=== PATIENT | male | born 1950 | race Caucasian/White ===

== ENCOUNTER → 2020-09-26 | Outpatient (CLI) | payer MEDICARE | LOC: M PLALAB 11:30 | PROVIDERS: ATTEND Nurse Practitioner Women's Health | DX: C61 Malignant neoplasm of prostate (principal) ==

== ENCOUNTER → 2021-01-16 | Outpatient (REF) | payer MEDICARE | LOC: M PLALAB 17:06 → M SMT 17:06 | PROVIDERS: ATTEND Nurse Practitioner Women's Health | DX: C61 Malignant neoplasm of prostate (principal) ==

== ENCOUNTER 2021-03-20 16:29 | Inpatient (IN) | payer MEDICARE ==
[~2021-03-20] VITALS: Ht 180.3 cm; Wt 86.0 kg
[2021-03-20] MEDS ORDERED: METOPROLOL TART 50 MG TAB PO ONE (19:00)
--- NOTE | 2021-03-20 19:00 | REP ---
INDICATION: CHEST PAIN. COMPARISON: None. TECHNIQUE: Portable FINDINGS: The technique utilized in obtaining the radiograph has magnified the cardiac silhouette and accentuated the interstitial markings. Mild cardiomegaly is present accentuated by technique. The interstitial markings are diffusely increased. There are no patchy opacities or pleural effusions. The osseous structures are within normal limits. IMPRESSION: Mild cardiomegaly is suspected with interstitial fibrotic change. Mild interstitial edema cannot be ruled out on this portable exam. There are no priors for comparison. <Electronically signed by Kvng Marshall > 03/20/21 [id number]
[2021-03-20] MEDS: METOPROLOL 5 MG/5 ML VIAL IV SCH ×3 (19:19→19:55)
[2021-03-20 19:32] LABS: BASO # 0.1 10^3/uL (0.0-0.2); BASO % 0.5 % (0.0-1.0); EOS # 0.1 10^3/uL (0.0-0.5); EOS % 1.1 % (0.0-3.0); HEMATOCRIT 45.8 % (42.0-52.0); HEMOGLOBIN 15.5 g/dl (13.5-17.5); LYMPH # 1.5 10^3/uL (1.5-5.0); LYMPH % 14.7 % (24.0-44.0); MEAN CORPUSCULAR HEMOGLOBIN 31.1 pg (27.0-33.0); MEAN CORPUSCULAR HGB CONC 33.8 g/dl (32.0-36.5); MEAN CORPUSCULAR VOLUME 91.8 fl (80.0-96.0); MONO # 0.8 10^3/uL (0.0-0.8); MONO % 7.9 % (2.0-8.0); NEUTROPHILS # 7.4 10^3/uL (1.5-8.5); NEUTROPHILS % 75.2 % (36.0-66.0); PLATELET COUNT, AUTOMATED 199 10^3/uL (150-450); RED BLOOD COUNT 4.99 10^6/uL (4.30-6.10); WHITE BLOOD COUNT 9.9 10^3/uL (4.0-10.0)
[2021-03-20 19:41] LABS: INR 1.07; PROTHROMBIN TIME 14.3 SECONDS (12.7-14.5)
[2021-03-20 19:42] LABS: PARTIAL THROMBOPLASTIN TIME 30.6 SECONDS (25.9-37.0)
[2021-03-20 19:55] LABS: ALBUMIN 3.8 GM/DL (3.2-5.2); ALT/SGPT 42 U/L (12-78); BILIRUBIN,DIRECT 0.1 MG/DL (0.0-0.2); BILIRUBIN,TOTAL 0.4 MG/DL (0.2-1.0); BLOOD UREA NITROGEN 18 MG/DL (7-18); CALCIUM LEVEL 9.3 MG/DL (8.8-10.2); CARBON DIOXIDE LEVEL 25 MEQ/L (21-32); CHLORIDE LEVEL 107 MEQ/L (98-107); CREATININE FOR GFR 1.06 MG/DL (0.70-1.30); GLOMERULAR FILTRATION RATE > 60.0 (>42); GLUCOSE, FASTING 100 MG/DL (70-100); LIPASE 150 U/L (73-393); MAGNESIUM LEVEL 2.2 MG/DL (1.8-2.4); NT-PRO BNP 2342 PG/ML (<125); POTASSIUM SERUM 4.3 MEQ/L (3.5-5.1); SODIUM LEVEL 139 MEQ/L (136-145); TOTAL PROTEIN 7.7 GM/DL (6.4-8.2)
[2021-03-20] MEDS ORDERED: NS 500 ML IV ONE (20:25)
[2021-03-20] MEDS ORDERED: amLODIPine 5 MG TAB PO ONE (21:15)
[2021-03-20] MEDS ORDERED: ENALAPRIL MALEATE 10 MG TAB PO ONE (21:15)
--- NOTE | 2021-03-20 23:32 | HPEPDOC ---
[facility] Medical History & Physical Date of Admission Mar 20, 2021 Date of Service: Mar 21, 2021 Primary Care Physician: Mable Moeller Attending Physician: BLAKE SANCHEZ MD History and Physical TIME OF SERVICE: 1230am CHIEF COMPLAINT: Dizziness HISTORY OF PRESENT ILLNESS: Mr. Joyner, a 70-year-old gentleman, has been feeling dizzy and having leg weakness for couple of days. He decided to go to Dr. Rosas's office and was found to have rapid A. fib and was sent to the ER. Despite receiving 3 doses of 5 mg of IV metoprolol, and 50 mg of p.o. metoprolol he is still in RVR with a rate in the 160s; Narciso Bowman discussed the case with Dr. Pope who recommended inpatient admission. The patient denies having chest pain, shortness of breath, confusion, or lower extremity swelling. He denies drinking alcoholic beverages recently, or drinking more caffeine than usual. He added that he has right lower arm pain which he attributes to tight placement of the blood pressure cuff along with numbness and paresthesia affecting the first 3 fingers of the right hand. REVIEW OF SYSTEMS: 10-point review of systems negative except as listed in HPI PAST MEDICAL/ SURGICAL HISTORY: Longstanding persistent atrial fibrillation, chronic CAD with a history of LA and stent placement in 1998, prostate cancer status post TRUS biopsy, essential hypertension, dyslipidemia, depression, arthritis, & diverticulosis SOCIAL HISTORY: He does not smoke FAMILY HISTORY: His father had prostate cancer, while his mother had an LA and diabetes ALLERGIES: Please see below. HOME MEDICATIONS: Please see below. PHYSICAL EXAMINATION: Vital Signs Date Time Temp Pulse Resp B/P (MAP) Pulse Ox O2 Delivery O2 Flow Rate FiO2 03/20/21 16:30 98.6 72 18 136/84 (101) 97 Room Air GENERAL APPEARANCE: Slim built, well-developed, not in apparent distress HEENT: Extraocular movements intact, mucous membranes moist and pink CARDIOVASCULAR: Heart rate irregularly irregular LUNGS: Clear to auscultation bilaterally on room air ABDOMEN: Flat MUSCULOSKELETAL: Range of motion intact x4 extremities. His left lower arm is more swollen compared to the right. He has what appear to be tophi on the dorsal surface of the MCPs INTEGUMENT: He is not flushed pale or diaphoretic NEUROLOGICAL: Cranial nerves II to XII are grossly intact speech is not dysarthric PSYCHIATRIC: He is alert and oriented to person place and time able to understand and follow all commands LABORATORY DATA: IMAGING: Chest x-ray IMPRESSION: Mild cardiomegaly is suspected with interstitial fibrotic change. Mild interstitial edema cannot be ruled out on this portable exam. There are no priors for comparison. MICROBIOLOGY: The respiratory panel is negative ASSESSMENT: Mr. Joyner is a 70-year-old with a history of atrial fibrillation, CAD, prostate cancer, HTN, dyslipidemia, depression & arthritis who was admitted for management of rapid A. fib. PLAN: 1 A fib w RVR Most risk factors for chronic a fib include HTN & CAD. I suspect that the etiology of this acute episode is idiopathic. Nevertheless we will r/o ischemia and CHF. His K, TSN and mag are wnl. His CHADS VASC Score to determine risk of stroke is 3. He is already on a DOAC [place] Score to determine if D-dimer needs to be ordered to screen for PE as precipitating cause of rapid Afib is out PE = 1 point = low risk Plan: he was initially admitted to ICU for IV Cardizem but his HR decreased to the 70s after 1 dose of IV Cardizem, therefore he was downgraded to PCU / telemetry / f/u serial Trops to r/o LA / bc his BNP is elevated will order Echo to r/o CHF / c/w Apixaban / c/w Atenolol 25mb BID /the day time team may consider touching base with Dr. Rosas to discuss whether the patients day time meds need to be adjusted and or if the patient needs a rescue plan such as taking an extra dose of atenolol if he notices that his HR is fast 2 Uncontrolled HTN Plan: c/w atenolol / IV Cardizem 3 LUE swelling Plan: f/u US to r/o DVT 4 hx of OA w tophi ? Plan: f/u uric acid 5 Right hand paresthesia along the radial nerve distribution Likely carpal tunnel syndrome Plan: f/u w PCP 6 Chronic CAD Plan: BB w statin 7 Prostate cancer Plan: f/u w Urology as scheduled / finasteride 8 Dyslipidemia Plan: statin 9 Depression Plan sertraline DVT px n/a on DOAC Dispo: home after at least 2 midnights stay His HOSPITAL Score is 1 point= which puts him in the low risk group. He has a 5.8% risk of potentially avoidable readmission within the next 30 days. Home Medications Scheduled Apixaban (Eliquis) 5 Mg Tablet, 5 MG PO BID Atenolol (Atenolol) 25 Mg Tablet, 25 MG PO BID Atorvastatin Calcium (Atorvastatin Calcium) 40 Mg Tablet, 40 MG PO QHS Enalapril Maleate (Enalapril Maleate) 10 Mg Tablet, 10 MG PO BID Ergocalciferol (Vitamin D2) (Vitamin D2) 50,000 Units Cap, 50,000 UNITS PO QWEEK FRIDAY Famotidine (Famotidine) 40 Mg Tablet, 40 MG PO QHS Finasteride (Finasteride) 5 Mg Tablet, 5 MG PO DAILY Sertraline Hcl (Zoloft) 100 Mg Tablet, 100 MG PO DAILY Allergies Coded Allergies: No Known Allergies (Unverified , 03/20/21) A-FIB/CHADSVASC A-FIB History Current/History of A-Fib/PAF?: No Current PO Anticoag Therapy: No BLAKE SANCHEZ MD Mar 20, 2021 23:32
[2021-03-20] MEDS ORDERED: ACETAMINOPHEN TAB 650MG DOSE (2X325MG) PO PRN (23:45)
[2021-03-21 00:13] LABS: RSV AMPLIFICATION NEGATIVE (NEGATIVE)
[2021-03-21 00:39] LABS: BASO # 0.1 10^3/uL (0.0-0.2); BASO % 0.5 % (0.0-1.0); EOS # 0.1 10^3/uL (0.0-0.5); EOS % 1.3 % (0.0-3.0); HEMATOCRIT 44.4 % (42.0-52.0); HEMOGLOBIN 15.2 g/dl (13.5-17.5); LYMPH # 1.7 10^3/uL (1.5-5.0); LYMPH % 16.1 % (24.0-44.0); MEAN CORPUSCULAR HEMOGLOBIN 31.5 pg (27.0-33.0); MEAN CORPUSCULAR HGB CONC 34.2 g/dl (32.0-36.5); MEAN CORPUSCULAR VOLUME 91.9 fl (80.0-96.0); MONO # 0.9 10^3/uL (0.0-0.8); MONO % 8.1 % (2.0-8.0); NEUTROPHILS # 7.8 10^3/uL (1.5-8.5); NEUTROPHILS % 73.3 % (36.0-66.0); PLATELET COUNT, AUTOMATED 200 10^3/uL (150-450); RED BLOOD COUNT 4.83 10^6/uL (4.30-6.10); WHITE BLOOD COUNT 10.6 10^3/uL (4.0-10.0)
[2021-03-21 01:02] LABS: BLOOD UREA NITROGEN 19 MG/DL (7-18); CALCIUM LEVEL 8.6 MG/DL (8.8-10.2); CARBON DIOXIDE LEVEL 26 MEQ/L (21-32); CHLORIDE LEVEL 107 MEQ/L (98-107); CREATININE FOR GFR 1.06 MG/DL (0.70-1.30); GLOMERULAR FILTRATION RATE > 60.0 (>42); GLUCOSE, FASTING 118 MG/DL (70-100); SODIUM LEVEL 138 MEQ/L (136-145); TROPONIN I < 0.02 NG/ML (< 0.10)
[2021-03-21] MEDS ORDERED: ZOLO100T PO (01:03)
[2021-03-21] MEDS ORDERED: FINA5TAB2 PO (01:03)
[2021-03-21] MEDS ORDERED: ENAL-36 PO (01:03)
[2021-03-21] MEDS ORDERED: ATEN25TA PO (01:03)
[2021-03-21] MEDS ORDERED: ATOR40TA75 PO (01:03)
[2021-03-21] MEDS ORDERED: FAMO40TA3 PO (01:03)
[2021-03-21] MEDS ORDERED: ERGO500029 PO (01:03)
[2021-03-21] MEDS ORDERED: ELIQ5TAB PO (01:03)
[2021-03-21] MEDS ORDERED: HOME MED LIST COMPLETE! XX SCH (01:05)
[2021-03-21 03:00] VITALS: BP 139/75
[2021-03-21] MEDS: APIXABAN 5 MG TAB (ELIQUIS) PO SCH ×3 (03:20→20:14)
[2021-03-21] MEDS: ATORVASTATIN 20 MG TAB PO SCH ×2 (03:22→20:13)
[2021-03-21 05:24] LABS: HEMATOCRIT 44.7 % (42.0-52.0); MEAN CORPUSCULAR HEMOGLOBIN 30.8 pg (27.0-33.0); MEAN CORPUSCULAR HGB CONC 33.6 g/dl (32.0-36.5); MEAN CORPUSCULAR VOLUME 91.8 fl (80.0-96.0); PLATELET COUNT, AUTOMATED 179 10^3/uL (150-450); RED BLOOD COUNT 4.87 10^6/uL (4.30-6.10); WHITE BLOOD COUNT 9.9 10^3/uL (4.0-10.0)
[2021-03-21 05:48] LABS: BLOOD UREA NITROGEN 19 MG/DL (7-18); CALCIUM LEVEL 8.2 MG/DL (8.8-10.2); CARBON DIOXIDE LEVEL 27 MEQ/L (21-32); CHLORIDE LEVEL 107 MEQ/L (98-107); CREATININE FOR GFR 0.99 MG/DL (0.70-1.30); GLOMERULAR FILTRATION RATE > 60.0 (>42); GLUCOSE, FASTING 97 MG/DL (70-100); POTASSIUM SERUM 3.7 MEQ/L (3.5-5.1); SODIUM LEVEL 140 MEQ/L (136-145); TROPONIN I < 0.02 NG/ML (< 0.10); URIC ACID 4.6 MG/DL (3.5-7.2)
--- NOTE | 2021-03-21 07:15 | ECGEPIP ---
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
[2021-03-21 07:42] VITALS: BP 122/77
[2021-03-21] MEDS: SERTRALINE 100 MG TAB PO SCH (07:43)
[2021-03-21] MEDS: FINASTERIDE 5 MG TAB PO SCH (07:44)
[2021-03-21] MEDS: ENALAPRIL MALEATE 10 MG TAB PO SCH ×2 (07:44→20:12)
[2021-03-21] MEDS: atenoloL 25 MG TAB PO SCH ×2 (07:44→20:14)
--- NOTE | 2021-03-21 11:36 | IPNPDOC ---
Text Note Date of Service The patient was seen on 03/21/21. NOTE Subjective Pt was seen and examined today and was asymptomatic when sitting, but admitted to experiencing dizziness, weakness in his legs, and sweating when he walks around the room. The muscular pain he was having in his L arm after multiple BP cuff inflations yesterday has resolved. Also, he had diarrhea x1 this morning. Denies SOB, GAMBLE, palpitations, chest pain, pain on deep inspiration, N/V/C, abdominal pain. Objective Gen: Euvolemic. HR in 120s and Telemetry indicative of Afib w RVR while walking. Rate drops to 90s when sitting, still in Afib. Psych: A+Ox3. HEENT: No JVD, moist oral cavity. RESP: CTA b/l, no rhonchi, crackles, or wheeze. CVS: RRR, no murmur. Distal pulses 2/4 b/l. ABD: Soft, NT, ND, normoactive sounds. Ext: No distal edema. Skin: Normal temp, no rash. Imaging/Tests Chest X-Ray 03/20: Reported as- 1. Mild cardiomegaly is suspected with interstitial fibrotic change. 2. Mild interstitial edema cannot be ruled out on this portable exam. EKG 03/20: Reported as- 1. Atrial flutter with variable AV block 2. Moderate voltage criteria for LVH, may be normal variant ( R in aVL , [place] product ) 3. 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 He presented for management of Afib w RVR noted at cardiology outpatient, and was admitted for rate control and evaluation. Plan 1. Afib w RVR Rate was controlled w Cardizem in ICU yesterday, so we will start that again. We are also giving Eliquis and atenolol. Pt clinically appears euvolemic and there is not high indication of CHF. Troponins have been negative-MD unlikely. TSH and electrolytes WNL, r/o hyperthyroidism or electrolyte induced arrhythmia as cause of Afib. Duplex US on L arm to r/o DVT. We are waiting on results of new ECHO and old ECHO from outpatient cardiology to compare for possible etiologies of Afib exacerbations. 2. HTN We are continuing home dose of Enalapril. 3. CAD We will continue home dose of Atenolol. 4. Dyslipidemia We will continue w home dose of Atorvastatin. 5. Depression We will continue with home dose of Sertraline. 6. Prostate Malignancy We will continue home dose of Finasteride. On watchful waiting per Urology, continue follow up on outpatient basis [place] score unknown 7. DVT Prophylaxis Pt is on Eliquis. Disposition Pt will continue to be monitored for another night as we evaluate and work to control his Afib. If rate control is achieved, we will consider discharge tomorrow. GME ATTESTATION My faculty preceptor for this patient encounter was physically present during the encounter and was fully available. All aspects of the patient interview, examination, medical decision making process, and medical care plan development were reviewed and approved by the faculty preceptor. The faculty preceptor is aware and concurs with the plan as stated in the body of this note and will attest to such by his co-signature. VS,Fishbone, I+O VS, Fishbone, I+O Laboratory Tests 03/20/21 18:28 03/21/21 00:26 03/21/21 05:01 Vital Signs Date Time Temp Pulse Resp B/P (MAP) Pulse Ox O2 Delivery O2 Flow Rate FiO2 03/21/21 07:44 110 122/77 03/21/21 07:42 98.0 20 95 Room Air I&O- Last 24 Hours up to 6 AM 03/21/21 06:00 Intake Total 740 ml Output Total 400 ml Balance 340 ml GENEVIEVE VANEGAS OMS-3 Mar 21, 2021 11:36 MUKESH DIAZ D.O. Mar 21, 2021 17:12
[2021-03-21 12:00] VITALS: BP 134/79
[2021-03-21 16:00] VITALS: BP 121/70
[2021-03-21 20:00] VITALS: BP 138/86
--- NOTE | 2021-03-21 23:11 | ECHO ---
ECHOCARDIOGRAM DATE OF PROCEDURE: 03/21/2021 Age: 70 Gender: Male Height: 180 cm Weight: 83 kg REFERRING PHYSICIAN: Mireya Lopez M.D. INDICATION: Cardiac dysrhythmia MEASUREMENTS: IVS 1.3 cm LV 4.5 cm LVPW 1.2 cm LA 4.6 cm Aorta 3.1 cm IVC 1.5 cm FINDINGS: This study is of acceptable technical quality. Patient is in atrial fibrillation with tachycardic rate averaging around 110 beats per minute. Left ventricle is normal size. Mild left ventricular hypertrophy is noted. Overall estimated normal ejection fraction around 65 to 70%. Right ventricle is also normal size and systolic function. Left atrium is severely enlarged. Right atrium appears at least mildly enlarged. Aortic valve is sclerotic, but it is tricuspid and has normal mobility. There are also mild degenerative abnormalities of mitral valve with mild annular calcifications. Mobility of mitral leaflets is preserved. Tricuspid and pulmonic valves appear grossly normal. No pericardial effusion is noted. Inferior vena cava is normal size and appropriately collapses with inspiration, indicative of likely normal central venous pressure. Aortic root appears normal. Aortic arch and abdominal aorta were not well seen. Doppler interrogation reveals trace aortic insufficiency and no significant aortic stenosis. Mitral valve is functionally competent. There is trace tricuspid insufficiency. Calculated pulmonary artery pressure is mid to high 20's, corresponding to normal values. Evaluation of diastolic function is inconclusive due to underlying atrial fibrillation. CONCLUSIONS: 1. Study is of good technical quality; underlying atrial fibrillation with tachycardic rate averaging around 110 bpm. 2. Normal LV size with mild LVH, preserved LV systolic function. Estimated LVEF 65 to 70%. 3. Normal RV size and systolic function. 4. Biatrial enlargement. 5. Prominent aortic sclerosis without significant stenosis and with mild insufficiency. 6. Competent mitral valve. 7. Normal central venous pressure and normal pulmonary artery pressure. MTDD
[2021-03-22] VITALS (7 sets, daily range): BP systolic 126–152; BP diastolic 70–91
[2021-03-22] MEDS: SERTRALINE 100 MG TAB PO SCH (08:35)
[2021-03-22] MEDS: APIXABAN 5 MG TAB (ELIQUIS) PO SCH ×2 (08:35→21:07)
[2021-03-22] MEDS: FINASTERIDE 5 MG TAB PO SCH (08:36)
[2021-03-22] MEDS: atenoloL 25 MG TAB PO SCH ×2 (08:36→21:07)
[2021-03-22] MEDS: ENALAPRIL MALEATE 10 MG TAB PO SCH ×2 (08:36→21:06)
--- NOTE | 2021-03-22 10:22 | REPVR ---
PROCEDURE INFORMATION: Exam: US Duplex Left Upper Extremity Veins, Limited Exam date and time: 03/21/2021 2:43 AM Age: 70 years old Clinical indication: Pain; Arm, lower; Left; Additional info: Left lower arm pain and swelling R/O dvt TECHNIQUE: Imaging protocol: Real-time Duplex ultrasound of the Left Upper Extremity with 2-D perales scale, color Doppler flow and spectral waveform analysis with image documentation. Limited exam focused on the left upper extremity veins. COMPARISON: No relevant prior studies available. FINDINGS: Left deep veins: Unremarkable. Axillary and brachial veins are patent throughout without thrombus. Normal Doppler waveforms. Normal compressibility and/or augmentation response. Visualized internal jugular and subclavian veins are patent. The contralateral subclavian vein is patent as well. Left superficial veins: Unremarkable. Visualized cephalic and basilic veins are patent without thrombus. Soft tissues: Unremarkable. IMPRESSION: No deep venous thrombus demonstrated in the left upper extremity. Electronically signed by: Дмитрий Bell On 03/22/2021 10:21:44 AM
--- NOTE | 2021-03-22 13:31 | IPNPDOC ---
Text Note Date of Service The patient was seen on 03/22/21. NOTE Subjective Pt was seen at bedside this morning and admits that when he sits up he gets sweaty. He also had diarrhea this morning, but admits that is typical for him in the mornings. He has not felt dizzy, or had palpitations or chest pain. Denied SOB, GAMBLE, abdominal pain, N/V/C. Objective Gen: In no distress, euvolemic. Psych: A+Ox3. HEENT: No JVD, moist oral cavity. RESP: CTA b/l, no rhonchi, crackles, or wheeze. CVS: RRR, no murmur, rub, or gallop. Distal pulses 2/4 b/l. ABD: Soft, NT, ND, normoactive sounds. Skin: Normal temp, no swelling. Neuro: Sensation intact b/l. Imaging/Tests Chest X-Ray 03/20: Reported as- 1. Mild cardiomegaly is suspected with interstitial fibrotic change. 2. Mild interstitial edema cannot be ruled out on this portable exam. EKG 03/20: Reported as- 1. Atrial flutter with variable AV block 2. Moderate voltage criteria for LVH, may be normal variant ( R in aVL , Seth product ) 3. Possible Inferior infarct , age undetermined ECHO 03/21: Reported as- LVEF of 65 to 70%. 1. Underlying atrial fibrillation with tachycardic rate averaging around 110 bpm. 2. Normal LV size with mild LVH, preserved LV systolic function and grade. Estimated 3. Normal RV size and systolic function. 4. Biatrial enlargement. 5. Prominent aortic sclerosis without significant stenosis and with mild insuf ficiency. 6. Competent mitral valve. 7. Normal central venous pressure and normal pulmonary artery pressure. 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 He presented for management of Afib w RVR noted at cardiology outpatient, and was admitted for rate control and evaluation. Plan 1. Afib w RVR Pt had multiple episodes of tachycardia since yesterday. To achieve better and more consistent rate control we increased Cardizem to 60mg Q6H. We are continuing Eliquis and atenolol. No indication of ischemia or CHF as a cause of RVR-troponins negative and pt is euvolemic. No indication of hyperthyroidism or electrolyte induced arrhythmia as a cause of Afib. ECHO done here showed normal ejection fraction and was essentially negative-not indicative of an etiology for the uncontrolled rate. If we achieve consistent rate control with Cardizem, the plan will be to main tain at home on long acting form. 2. HTN We are giving home dose of Enalapril. 3. CAD We are giving home dose of Atenolol. 4. Dyslipidemia We are giving home dose of Atorvastatin. 5. Depression We are giving home dose of Sertraline. 6. Prostate Malignancy Pt is on watchful waiting per Urology, and will continue follow up on outpatient. He is currently on Finasteride. [place] score unknown. 7. DVT Prophylaxis Continue w Eliquis. Disposition We are monitoring pt another night to evaluate response to dosing of Cardizem, we will consider discharge tomorrow based on achievement of rate control. GME ATTESTATION My faculty preceptor for this patient encounter was physically present during the encounter and was fully available. All aspects of the patient interview, examination, medical decision making process, and medical care plan development were reviewed and approved by the faculty preceptor. The faculty preceptor is aware and concurs with the plan as stated in the body of this note and will attest to such by his co-signature. VS,Fishbone, I+O VS, Fishbone, I+O Vital Signs Date Time Temp Pulse Resp B/P (MAP) Pulse Ox O2 Delivery O2 Flow Rate FiO2 03/22/21 12:39 96 126/78 03/22/21 12:00 99.4 20 96 03/22/21 08:00 Room Air I&O- Last 24 Hours up to 6 AM 03/22/21 06:00 Intake Total 240 ml Output Total 0 ml Balance 240 ml GENEVIEVE VANEGAS OMS-3 Mar 22, 2021 13:31 MUKESH DIAZ D.O. Mar 22, 2021 16:43
[2021-03-22] MEDS: ATORVASTATIN 20 MG TAB PO SCH (21:05)
[2021-03-23] VITALS: BP 146/83
[2021-03-23 04:00] VITALS: BP 128/85
[2021-03-23 08:41] LABS: HEMATOCRIT 45.5 % (42.0-52.0); HEMOGLOBIN 15.5 g/dl (13.5-17.5); MEAN CORPUSCULAR HEMOGLOBIN 31.1 pg (27.0-33.0); MEAN CORPUSCULAR HGB CONC 34.1 g/dl (32.0-36.5); MEAN CORPUSCULAR VOLUME 91.2 fl (80.0-96.0); PLATELET COUNT, AUTOMATED 191 10^3/uL (150-450); RED BLOOD COUNT 4.99 10^6/uL (4.30-6.10); WHITE BLOOD COUNT 9.1 10^3/uL (4.0-10.0)
[2021-03-23] MEDS ORDERED: CARD120C3 PO (08:47)
[2021-03-23 09:03] LABS: BLOOD UREA NITROGEN 21 MG/DL (7-18); CALCIUM LEVEL 8.6 MG/DL (8.8-10.2); CARBON DIOXIDE LEVEL 23 MEQ/L (21-32); CHLORIDE LEVEL 105 MEQ/L (98-107); CREATININE FOR GFR 1.18 MG/DL (0.70-1.30); GLOMERULAR FILTRATION RATE > 60.0 (>42); GLUCOSE, FASTING 203 MG/DL (70-100); POTASSIUM SERUM 3.7 MEQ/L (3.5-5.1); SODIUM LEVEL 138 MEQ/L (136-145)
[2021-03-23] MEDS: SERTRALINE 100 MG TAB PO SCH (09:56)
[2021-03-23 09:57] VITALS: BP 128/85
[2021-03-23] MEDS: APIXABAN 5 MG TAB (ELIQUIS) PO SCH (09:57)
[2021-03-23] MEDS: FINASTERIDE 5 MG TAB PO SCH (09:57)
[2021-03-23] MEDS: atenoloL 25 MG TAB PO SCH (09:57)
[2021-03-23] MEDS: ENALAPRIL MALEATE 10 MG TAB PO SCH (09:58)
[2021-03-23 10:19] VITALS: BP 134/75
--- NOTE | 2021-03-23 12:53 | DS.PDOC ---
Discharge Summary General Date of Admission Mar 20, 2021 at 23:32 Date of Discharge 03/23/21 Attending Physician: ZOEY ARTHUR MD Discharge Summary PROCEDURES PERFORMED DURING STAY: None ADMITTING DIAGNOSES: 1. Atrial Fibrillation w RVR 2. CAD s/p TX and stent 1998 3. HTN 4. Dyslipidemia 5. Transitional zone Prostate malignancy-follows w urology 6. Depression DISCHARGE DIAGNOSES: 1. Atrial Fibrillation-rate controlled 2. CAD s/p TX and stent 1998 3. HTN 4. Dyslipidemia 5. Transitional zone Prostate malignancy-follows w urology 6. 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 He presented on 03/20 after being seen that day at outpatient cardiology where it was determined he was in Afib w RVR. He had a 1 week Hx of becoming diaphoretic and dizzy on exertion, and on initial evaluation in the ED he was tachycardic in Afib. He denied any chest pain, palpitations, SOB, or pain on inspiration. HOSPITAL COURSE: Pt stayed 3 nights in hospital for evaluation of Afib w RVR, with goals of rate control and sx alleviation. Pt had multiple episodes of tachycardia and diaphoresis on exertion during his stay. His rate became more controlled with admin of Cardizem, and we achieved optimal and consistent control with dose increased to 60mg Q6H. We also maintained pt on his home doses of Eliquis and atenolol. Pt has not had tachycardia or symptoms since yesterday evening. There was no indication of ischemia or CHF as a cause of the RVR-troponins were negative and pt was euvolemic. There was no indication of hyperthyroidism or electrolyte induced arrhythmia as a cause of tachycardia. ECHO done here showed normal ejection fraction and was essentially negative, and not indicative of an etiology for the uncontrolled rate. Overall, we achieved consistent rate control with optimal dose of Cardizem, and pt was stable for discharge and close f/u outpatient with his a r specialist. DISCHARGE MEDICATIONS: Please see below. ALLERGIES: Please see below. PHYSICAL EXAMINATION ON DISCHARGE: VITAL SIGNS: Please see below. Gen: Pt is comfortable and in no distress. Appears euvolemic. Psych: A+Ox3. HEENT: No JVD. RESP: CTA b/l, no rhonchi, crackles, or wheeze. CVS: RRR, no murmur, rub, or gallop. Distal pulses 2/4 b/l. ABD: Soft, NT, ND, normoactive sounds. Ext: No distal edema. MSK: Plantarflexion 5/5 b/l. LABORATORY DATA: Please see below. IMAGING: Chest X-Ray 03/20: Reported as- 1. Mild cardiomegaly is suspected with interstitial fibrotic change. 2. Mild interstitial edema cannot be ruled out on this portable exam. EKG 03/20: Reported as- 1. Atrial flutter with variable AV block 2. Moderate voltage criteria for LVH, may be normal variant ( R in aVL , Seth product ) 3. Possible Inferior infarct, age undetermined ECHO 03/21: Reported as- LVEF of 65 to 70%. 1. Underlying atrial fibrillation with tachycardic rate averaging around 110 bpm. 2. Normal LV size with mild LVH, preserved LV systolic function and grade. Estimated 3. Normal RV size and systolic function. 4. Biatrial enlargement. 5. Prominent aortic sclerosis without significant stenosis and with mild ins ufficiency. 6. Competent mitral valve. 7. Normal central venous pressure and normal pulmonary artery pressure. PROGNOSIS: Good. ACTIVITY: As tolerated DIET: Normal DISCHARGE PLAN: Continue Cardizem at home with close follow up with his a r specialist. DISPOSITION: Home. DISCHARGE INSTRUCTIONS: 1. Resume all home medications. 2. Pt will also take Cardizem 240mg XR daily for rate control. ITEMS TO FOLLOWUP ON ON OUTPATIENT: 1. Follow up with Dr. Rosas in 1-2 weeks. DISCHARGE CONDITION: Stable TIME SPENT ON DISCHARGE: 45 minutes. GME ATTESTATION My faculty preceptor for this patient encounter was physically present during the encounter and was fully available. All aspects of the patient interview, examination, medical decision making process, and medical care plan development were reviewed and approved by the faculty preceptor. The faculty preceptor is aware and concurs with the plan as stated in the body of this note and will attest to such by his co-signature. Vital Signs/I&Os Vital Signs Date Time Temp Pulse Resp B/P (MAP) Pulse Ox O2 Delivery O2 Flow Rate FiO2 03/23/21 10:19 99.3 87 18 134/75 (94) 96 Room Air I&O- Last 24 Hours up to 6 AM 03/23/21 06:00 Intake Total 600 ml Output Total 400 ml Balance 200 ml Laboratory Data Labs 24H Laboratory Tests 2 03/23/21 08:31: Nucleated Red Blood Cells % (auto) 0.0, Anion Gap 10, Glomerular Filtration Rate > 60.0, Calcium Level 8.6L CBC/BMP Laboratory Tests 03/23/21 08:31 Discharge Medications Scheduled Apixaban (Eliquis) 5 Mg Tablet, 5 MG PO BID, (Reported) Atenolol (Atenolol) 25 Mg Tablet, 25 MG PO BID, (Reported) Atorvastatin Calcium (Atorvastatin Calcium) 40 Mg Tablet, 40 MG PO QHS, (Reported) Diltiazem Hcl (Cardizem Cd) 120 Mg Cap.er.24h, 240 MG PO DAILY Enalapril Maleate (Enalapril Maleate) 10 Mg Tablet, 10 MG PO BID, (Reported) Ergocalciferol (Vitamin D2) (Vitamin D2) 50,000 Units Cap, 50,000 UNITS PO QWEEK, (Reported) FRIDAY Famotidine (Famotidine) 40 Mg Tablet, 40 MG PO QHS, (Reported) Finasteride (Finasteride) 5 Mg Tablet, 5 MG PO DAILY, (Reported) Sertraline Hcl (Zoloft) 100 Mg Tablet, 100 MG PO DAILY, (Reported) Allergies Coded Allergies: No Known Allergies (Unverified , 03/20/21) GENEVIEVE VANEGAS S-3 Mar 23, 2021 12:53 MUKESH DIAZ D.O. Mar 23, 2021 17:46
== END 2021-03-23 12:18 | disposition home or self-care (01) | DRG 310 ==
LOC: M ED 16:29 → M ED INP 23:32 → CANRESERV 03-21 00:21 → ENRESERV 03-21 00:21 → M PCU 03-21 03:05
PROVIDERS: ADMIT Internal Medicine; ATTEND Internal Medicine
DX: I48.11 Longstanding persistent atrial fibrillation (principal); I25.10 Atherosclerotic heart disease of native coronary artery without angina pectoris; I25.2 Old myocardial infarction; Z95.5 Presence of coronary angioplasty implant and graft; C61 Malignant neoplasm of prostate; I10 Essential (primary) hypertension; E78.5 Hyperlipidemia, unspecified; F32.9 Major depressive disorder, single episode, unspecified; M06.9 Rheumatoid arthritis, unspecified; Z79.01 Long term (current) use of anticoagulants; Z79.899 Other long term (current) drug therapy; Z20.822 Contact with and (suspected) exposure to COVID-19

== ENCOUNTER → 2021-07-19 | Outpatient (CLI) | payer MEDICARE ==
[~2021-07-19] MED LIST: ATEN25TA PO; ATOR40TA75 PO; CARD120C3 PO; ELIQ5TAB PO; ENAL-36 PO; ERGO500029 PO; FAMO40TA3 PO; FINA5TAB2 PO; ZOLO100T PO
== END ==
LOC: M PLALAB 10:35
PROVIDERS: ATTEND Nurse Practitioner Women's Health
DX: C61 Malignant neoplasm of prostate (principal)

== ENCOUNTER → 2022-01-14 | Outpatient (CLI) | payer MEDICARE | LOC: M PLALAB 10:25 | PROVIDERS: ATTEND Nurse Practitioner Women's Health | DX: C61 Malignant neoplasm of prostate (principal) ==

== ENCOUNTER → 2022-07-15 | Outpatient (CLI) | payer MEDICARE | LOC: M PLALAB 10:37 | PROVIDERS: ATTEND Nurse Practitioner Women's Health | DX: C61 Malignant neoplasm of prostate (principal) ==

== ENCOUNTER → 2022-12-04 | Outpatient (CLI) | payer MEDICARE ==
[~2022-12-04] MED LIST changes: -ENAL-36 PO; +ENAL1TAB50 PO
[2022-12-04 13:38] LABS: HEMATOCRIT 46.3 % (42.0-52.0); HEMOGLOBIN 14.9 g/dl (13.5-17.5); MEAN CORPUSCULAR HEMOGLOBIN 30.7 pg (27.0-33.0); MEAN CORPUSCULAR HGB CONC 32.2 g/dl (32.0-36.5); MEAN CORPUSCULAR VOLUME 95.5 fl (80.0-96.0); PLATELET COUNT, AUTOMATED 228 10^3/uL (150-450); RED BLOOD COUNT 4.85 10^6/uL (4.30-6.10); WHITE BLOOD COUNT 9.3 10^3/uL (4.0-10.0)
[2022-12-04 14:07] LABS: CALCIUM LEVEL 9.1 MG/DL (8.3-10.6); CREATININE FOR GFR 1.37 MG/DL (0.70-1.30); GLOMERULAR FILTRATION RATE 54.2 (>42); POTASSIUM SERUM 4.4 MMOL/L (3.5-5.1)
[2022-12-04 14:09] LABS: THYROID STIMULATING HORMONE 0.801 uIU/ML (0.55-4.78)
== END ==
LOC: M PLALAB 09:33
PROVIDERS: ATTEND Nurse Practitioner Family
DX: I48.0 Paroxysmal atrial fibrillation (principal)

== ENCOUNTER → 2023-01-22 | Outpatient (CLI) | payer MEDICARE | LOC: M PLALAB 09:44 | PROVIDERS: ATTEND Physician Assistant | DX: C61 Malignant neoplasm of prostate (principal) ==

== ENCOUNTER → 2023-02-07 | Outpatient (CLI) | payer MEDICARE ==
[2023-02-07 13:51] LABS: BILIRUBIN,TOTAL 0.6 MG/DL (0.3-1.2); CALCIUM LEVEL 8.8 MG/DL (8.3-10.6); CREATININE FOR GFR 1.4 MG/DL (0.70-1.30); GLOMERULAR FILTRATION RATE 52.9 (>42); TOTAL PROTEIN 7.4 G/DL (5.7-8.2)
== END ==
LOC: M PLALAB 12:05
PROVIDERS: ATTEND Nurse Practitioner Family
DX: I50.31 Acute diastolic (congestive) heart failure (principal)

== ENCOUNTER 2023-05-15 06:17 | Day surgery (SDC) | payer MEDICARE ==
[~2023-05-15] VITALS: Ht 180.3 cm; Wt 81.2 kg
[~2023-05-15 06:17] MED LIST changes: +AMIO200T49 PO; +AMLO1TAB24; +BAYE81TA10 PO; +FURO40TA2 PO; +TRAZ1TAB11 PO; +ZOLO100T
[2023-05-15] MEDS ORDERED: LR 1,000 ML IV SCH ×2 (06:55→08:35)
[2023-05-15] MEDS ORDERED: propofoL 200 MG/20 ML VIAL As Ordered ONE (07:13)
[2023-05-15] MEDS ORDERED: LIDOCAINE 2% 100MG/5ML SDV (FOR ANES.) As Ordered ONE (07:13)
[2023-05-15] MEDS ORDERED: oxyCODONE 5MG TAB PO PRN (08:35)
[2023-05-15] MEDS ORDERED: ONDANSETRON 4MG 2ML VIAL IV PRN (08:35)
[2023-05-15 10:05] VITALS: BP 156/87; TEMP 97.2; O2SAT 98
== END 2023-05-15 10:05 | disposition home or self-care (01) ==
LOC: M SDC 06:17
PROVIDERS: ATTEND Internal Medicine Cardiovascular Disease
DX: I48.91 Unspecified atrial fibrillation (principal); I48.92 Unspecified atrial flutter; I25.2 Old myocardial infarction; I25.10 Atherosclerotic heart disease of native coronary artery without angina pectoris; I10 Essential (primary) hypertension; E78.00 Pure hypercholesterolemia, unspecified; Z79.82 Long term (current) use of aspirin; Z79.899 Other long term (current) drug therapy; Z95.5 Presence of coronary angioplasty implant and graft

== ENCOUNTER → 2023-07-23 | Outpatient (CLI) | payer MEDICARE | LOC: M PLALAB 10:45 | PROVIDERS: ATTEND Physician Assistant | DX: R97.20 Elevated prostate specific antigen [PSA] (principal) ==

== ENCOUNTER → 2024-01-19 | Outpatient (CLI) | payer MEDICARE | LOC: M PLALAB 11:47 | PROVIDERS: ATTEND Physician Assistant | DX: C61 Malignant neoplasm of prostate (principal) ==

== ENCOUNTER → 2024-02-13 | Outpatient (CLI) | payer MEDICARE ==
[~2024-02-13] MED LIST changes: +PROHANCE 279.3MG/ML 15ML VIAL ONE
== END ==
LOC: M PLAIMG 13:09
PROVIDERS: ATTEND Physician Assistant
DX: C61 Malignant neoplasm of prostate (principal)
CPT/HCPCS: 72197; A9576

== ENCOUNTER → 2024-04-15 | Outpatient (CLI) | payer MEDICARE ==
[~2024-04-15] MED LIST changes: -PROHANCE 279.3MG/ML 15ML VIAL ONE; +VALS1TAB67 PO
[2024-04-15 11:58] LABS: HEMATOCRIT 43.4 % (42.0-52.0); HEMOGLOBIN 14.8 g/dl (13.5-17.5); MEAN CORPUSCULAR HEMOGLOBIN 31.6 pg (27.0-33.0); MEAN CORPUSCULAR HGB CONC 34.1 g/dl (32.0-36.5); MEAN CORPUSCULAR VOLUME 92.7 fl (80.0-96.0); PLATELET COUNT, AUTOMATED 198 10^3/uL (150-450); RED BLOOD COUNT 4.68 10^6/uL (4.30-6.10); WHITE BLOOD COUNT 6.8 10^3/uL (4.0-10.0)
[2024-04-15 12:22] LABS: CALCIUM LEVEL 9.4 MG/DL (8.3-10.6); CREATININE FOR GFR 1.32 MG/DL (0.70-1.30); GLOMERULAR FILTRATION RATE 56.4 (>42); POTASSIUM SERUM 4.2 MMOL/L (3.5-5.1)
== END ==
LOC: M RAD 10:36
PROVIDERS: ATTEND Urology
DX: Z01.818 Encounter for other preprocedural examination (principal); C61 Malignant neoplasm of prostate; N39.0 Urinary tract infection, site not specified

== ENCOUNTER 2024-04-21 06:00 | Day surgery (SDC) | payer MEDICARE ==
[~2024-04-21] VITALS: Ht 180.3 cm; Wt 84.8 kg
[2024-04-21] MEDS ORDERED: LR 1,000 ML IV SCH (06:25)
[2024-04-21] MEDS ORDERED: LIDOCAINE 1% SDV 30ML VIAL As Ordered ONE (07:13)
[2024-04-21] MEDS ORDERED: LIDOCAINE 2% 100MG/5ML SDV (FOR ANES.) As Ordered ONE (07:22)
[2024-04-21] MEDS ORDERED: ONDANSETRON 4MG 2ML VIAL As Ordered ONE (07:22)
[2024-04-21] MEDS ORDERED: propofoL 200 MG/20 ML VIAL As Ordered ONE (07:22)
[2024-04-21] MEDS ORDERED: MIDAZOLAM INJ 2MG/2ML VIAL As Ordered ONE (07:22)
[2024-04-21] MEDS ORDERED: fentaNYL 100 MCG/2 ML INJECTION As Ordered ONE (07:22)
[2024-04-21] MEDS ORDERED: ePHEDrine SULFATE 25 MG/5 ML(5MG/ML) SYRINGE As Ordered ONE (08:10)
[2024-04-21] MEDS ORDERED: fentaNYL 100 MCG/2 ML INJECTION IV PRN (08:25)
[2024-04-21] MEDS ORDERED: ONDANSETRON 4MG 2ML VIAL IV PRN (08:25)
[2024-04-21] MEDS ORDERED: oxyCODONE 5MG TAB PO PRN (08:25)
[2024-04-21] MEDS ORDERED: ACETAMINOPHEN TAB 650MG DOSE (2X325MG) PO PRN (08:40)
[2024-04-21 11:48] VITALS: TEMP 97
[2024-04-21 12:10] VITALS: BP 168/78; O2SAT 97
== END 2024-04-21 12:15 | disposition home or self-care (01) ==
LOC: M SDC 06:00
PROVIDERS: ATTEND Urology
DX: C61 Malignant neoplasm of prostate (principal); I25.10 Atherosclerotic heart disease of native coronary artery without angina pectoris; I10 Essential (primary) hypertension; I25.2 Old myocardial infarction; E78.00 Pure hypercholesterolemia, unspecified; Z95.5 Presence of coronary angioplasty implant and graft; Z79.899 Other long term (current) drug therapy; Z79.01 Long term (current) use of anticoagulants; Z79.82 Long term (current) use of aspirin; R06.02 Shortness of breath; Z87.19 Personal history of other diseases of the digestive system
CPT/HCPCS: 55700; G0416; J1100; J2250; J2405; J3010

== ENCOUNTER → 2024-07-30 | Outpatient (CLI) | payer MEDICARE | LOC: M PLALAB 11:26 | PROVIDERS: ATTEND Urology | DX: C61 Malignant neoplasm of prostate (principal) ==

== ENCOUNTER → 2024-11-12 | Outpatient (CLI) | payer MEDICARE | LOC: M PLALAB 10:57 | PROVIDERS: ATTEND Urology | DX: C61 Malignant neoplasm of prostate (principal) ==

== ENCOUNTER 2025-02-17 07:25 | Day surgery (SDC) | payer MEDICARE ==
[~2025-02-17] VITALS: Ht 180.3 cm; Wt 84.4 kg
[~2025-02-17 07:25] MED LIST changes: +AMIO100T11 PO; -AMIO200T49 PO; +AMIO200T54 PO; +ATEN50TA2 PO; +DILT30TA PO; +GLIP-318 PO; +GLIP5TAB17 PO; +PHENYLEPHRINE 10% OPHTH SOL 5ML OD PRN; -ZOLO100T
[2025-02-17] MEDS: OFLOXACIN 0.3 % (OCUFLOX) OPTH SOL 5ML OD ONE (09:02)
[2025-02-17] MEDS: PHENYLEPHRINE 2.5% OPHTH SOL 2ML OD SCH (09:02)
[2025-02-17] MEDS: CYCLOPENTOLATE 1% OPHTH SOLN 2 ML BTL OD SCH (09:03)
[2025-02-17] MEDS: TROPICAMIDE 1% OPHTH SOLN 15ML OD SCH (09:03)
[2025-02-17] MEDS: LIDOCAINE 3.5% 1 ML OPHTH TOPICAL GEL OU ONE (09:03)
[2025-02-17] MEDS ORDERED: MIDAZOLAM INJ 2 MG/2 ML VIAL As Ordered ONE (09:19)
[2025-02-17] MEDS: CEFUROXIME 1 MG/0.1 ML INTRACAMERAL INJ As Ordered ONE (10:06)
[2025-02-17] MEDS: LIDOCAINE 1% SDV 5 ML VIAL As Ordered ONE (10:06)
[2025-02-17] MEDS: BSS IRRIG/VANCO(10MG)/TOBRA(5MG)/EPINEPH(1:1000-0.5CC)500ML BAG-ORONLY As Ordered ONE (10:06)
[2025-02-17 10:23] VITALS: BP 161/83; TEMP 97.2; O2SAT 94
== END 2025-02-17 10:50 | disposition home or self-care (01) ==
LOC: M SDC 07:25
PROVIDERS: ATTEND Ophthalmology
DX: E11.36 Type 2 diabetes mellitus with diabetic cataract (principal); H25.11 Age-related nuclear cataract, right eye; I48.91 Unspecified atrial fibrillation; I25.10 Atherosclerotic heart disease of native coronary artery without angina pectoris; I10 Essential (primary) hypertension; Z79.01 Long term (current) use of anticoagulants; Z79.899 Other long term (current) drug therapy; Z79.82 Long term (current) use of aspirin; Z79.84 Long term (current) use of oral hypoglycemic drugs
CPT/HCPCS: 66984; 92015; J0697; J2250; J3010; V2788

== ENCOUNTER → 2025-03-25 | Outpatient (CLI) | payer MEDICARE ==
[~2025-03-25] MED LIST changes: -PHENYLEPHRINE 10% OPHTH SOL 5ML OD PRN
== END ==
LOC: M PLALAB 10:29
PROVIDERS: ATTEND Urology
DX: C61 Malignant neoplasm of prostate (principal)

== ENCOUNTER → 2025-07-18 | Outpatient (REF) | payer MEDICARE | LOC: M LABDRAWP 13:07 | PROVIDERS: ATTEND Urology | DX: C61 Malignant neoplasm of prostate (principal) ==